=== PATIENT | female | born 1995 | race Caucasian/White ===

== ENCOUNTER 2016-07-28 21:40 | Emergency (ER) | payer BC, OTHER ==
[~2016-07-28] VITALS: Ht 182.9 cm; Wt 92.0 kg
[2016-07-28 21:51] VITALS: TEMP 37.2; Ht 182.9 cm; Wt 92.0 kg
[2016-07-28] MEDS ORDERED: AMOX875T PO (22:12)
[2016-07-28] MEDS ORDERED: PRED10TA PO (22:12)
[2016-07-28] MEDS ORDERED: ACETAMINOPHEN 500 MG TAB PO STA (22:29)
[2016-07-28] MEDS ORDERED: IBUPROFEN 600 MG TAB PO STA (22:29)
--- NOTE | 2016-07-28 22:42 | EMERGENCY ROOM VISIT NOTE ---
History Report prepared by Jaydon: Ronaldo Woods Under the Supervision of: Dr. David Mulligan M.D. First contact with patient: 22:20 Chief Complaint: BITE Stated Complaint: BIT BY DOG LAST NIGHT, FEELING WORSE SINCE SEEN History of Present Illness The patient is a 21 year old female who presents to the Emergency Room with complaints of worsening left wrist pain secondary to dog bite occurring yesterday. 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 The patient was able to shake off the dog. She is unsure if the dog is completely immunized yet or not. Last night, the patient started having pain radiation to her left fingers, left upper arm, and left side of upper back. She took Motrin last night with some relief. She was evaluated at [facility] today, received an antibiotic shot, and was prescribed Augmentin and Prednisone. The patient denies headache, fevers, chills, or any other complaints. Her tetanus shot is up-to-date. Source of History: patient Onset: yesterday Position: wrist (left) Timing: worsening Modifying Factors (Relieving): other (Motrin with some relief) Associated Symptoms: No chills, No fevers, No headache Review of Systems See HPI for pertinent positives & negatives. A total of 10 systems reviewed and were otherwise negative. Past Medical & Surgical Medical Problems: (1) No Known Active Medical Problems Family History Patient reports no known family medical history. Social History Smoking Status: Never Smoker Marital Status: single Occupation Status: student Current/Historical Medications Scheduled Amoxicillin & Pot Clavulanate (Augmentin 875-125 mg), 1 TAB PO BID Prednisone Tab (Prednisone), 10 MG PO DAILY Allergies Coded Allergies: Sulfa Antibiotics (Verified Allergy, Unknown, HAPPENED A CHILD, 07/28/16 ) Physical Exam Vital Signs Date Time Temp Pulse Resp B/P Pulse Ox O2 Delivery O2 Flow Rate FiO2 07/28/16 21:51 37.2 86 18 151/98 97 Room Air Physical Exam GENERAL: Patient is in no acute distress. HEENT: No acute trauma, normocephalic atraumatic, mucous membranes moist, no nasal congestion, no scleral icterus. NECK: No stridor, no adenopathy, no meningismus, trachea is midline. LUNGS: Clear to auscultation bilaterally, no wheeze, no rhonchi, breath sounds equal. HEART: Without murmurs gallops or rubs, regular rate and rhythm. ABDOMEN: Soft, nontender, bowel sounds positive, no hernias, no peritonitis. EXTREMITIES: Abrasions and a puncture wound to the left volar and lateral wrist. No signs of cellulitis. All tendon function appears intact. Strong radial pulse. No ascending infection. NEUROLOGIC: Oriented x 3, no acute motor or sensory deficits, no focal weakness. SKIN: No rash, no jaundice, no diaphoresis. Medical Decision & Procedures ER Provider Diagnostic Interpretation: X-ray results as stated below per interpretation by me and the radiologist: LEFT WRIST 5 VIEWS HISTORY: bite, pain COMPARISON: None. FINDINGS: There is no fracture or dislocation. Mild dorsal soft tissue swelling. No radiopaque foreign bodies. IMPRESSION: No fractures. Electronically signed by: Josh Cabral M.D. 07/28/2016 10:59 PM Dictated Date/Time: 07/28/2016 10:57 PM Medications Administered Medications (Trade) Dose Ordered Sig/Soheila Route Start Time Stop Time Status Last Admin Dose Admin Ibuprofen (Motrin Tab) 600 mg NOW STAT PO 07/28/16 22:29 07/28/16 22:31 DC 07/28/16 22:36 600 MG Acetaminophen (Tylenol Tab) 500 mg NOW STAT PO 07/28/16 22:29 07/28/16 22:31 DC 07/28/16 22:36 500 MG ED Course 2220: The patient was evaluated in room A12B. A complete history and physical exam was performed. 2229: Tylenol Tab 500 mg PO, Motrin Tab 600 mg PO 2315: Reevaluated the patient. Discussed results and discharge instructions: She verbalized understanding and agreement. The patient is ready for discharge. Medical Decision Differential diagnosis includes but is not limited to fracture, retained foreign body, cellulitis, tendon or nerve damage, arterial damage. The patient presents with left wrist pain from a dog bite that occurred yesterday. She was concerned for spreading infection. She is on Augmentin and took a dose just a few hours ago. The patient feels pain radiating from her wrist up to her shoulder. Films of the left wrist were done, there was no acute fracture, no bony malalignment. On exam, the patient did not have cellulitis. There were no neurovascular deficits. Her tendon function appeared intact. The patient was reassured by the exam and x-ray. She was told to continue the Augmentin but to stop the prednisone. Ice and elevation were encouraged. She can return here if worsening or not improving. Of note, the patient was not sure of the dog's rabies status but feels the dog is likely immunized. She will talk to her supervisor edging tomorrow and address this issue. She can return here if rabies vaccinations are required. Impression Primary Impression: Dog bite Additional Impression: Left wrist pain Scribe Attestation The scribe's documentation has been prepared under my direction and personally reviewed by me in its entirety. I confirm that the note above accurately reflects all work, treatment, procedures, and medical decision making performed by me. Departure Information Dispostion Home / Self-Care Referrals No Doctor Assigned Forms HOME CARE DOCUMENTATION FORM, IMPORTANT VISIT INFORMATION Patient Instructions My [facility] Additional Instructions stop the prednisone continue the augmentin ice to the area may help use motrin 600 mg 3x per day for 5 days may use tylenol for pain as needed return for fever or worsening symptoms you need to talk with the client administrator at [facility] to be sure the dog has had its rabies vaccines Problem Qualifiers
--- NOTE | 2016-07-28 23:00 | DIAGNOSTIC IMAGING REPORT ---
LEFT WRIST 5 VIEWS HISTORY: bite, pain COMPARISON: None. FINDINGS: There is no fracture or dislocation. Mild dorsal soft tissue swelling. No radiopaque foreign bodies. IMPRESSION: No fractures. Electronically signed by: Josh Cabral M.D. 07/28/2016 10:59 PM Dictated Date/Time: 07/28/2016 10:57 PM
[2016-07-28 23:31] VITALS: BP 132/81; PULSE 61; O2SAT 96
== END 2016-07-28 23:31 | disposition home or self-care (01) ==
LOC: C.EDB 21:43 → C.EDA 23:31
DX: W54.0XXA Bitten by dog, initial encounter (principal); M25.532 Pain in left wrist

== ENCOUNTER → 2017-03-01 | Outpatient (CLI) | payer BC ==
[~2017-03-01] MED LIST: AMOX875T PO; PRED10TA PO
[2017-03-04 01:47] LABS: CHLAMYDIA TRACH RNA*** NOT DETECTED (NOT DETECTED); GC (NEIS GONORRHOEAE)RNA** NOT DETECTED (NOT DETECTED)
== END | disposition home or self-care (01) ==
LOC: C.LABSPEC 18:26
PROVIDERS: ATTEND Physician Assistant
DX: N39.0 Urinary tract infection, site not specified (principal); N89.8 Other specified noninflammatory disorders of vagina

== ENCOUNTER → 2017-07-09 | Outpatient (CLI) | payer BC | END | disposition home or self-care (01) | LOC: C.LABSPEC 15:46 | PROVIDERS: ATTEND Physician Assistant | DX: Z20.2 Contact with and (suspected) exposure to infections with a predominantly sexual mode of transmission (principal); N89.8 Other specified noninflammatory disorders of vagina; N76.0 Acute vaginitis ==

== ENCOUNTER → 2017-07-09 | Outpatient (CLI) | payer BC ==
[2017-07-09 16:50] LABS: HEP C IGG 13 YRS+OLDER_RFLX NEG (NEG)
== END | disposition home or self-care (01) ==
LOC: C.LAB1850 14:33
PROVIDERS: ATTEND Physician Assistant
DX: Z20.2 Contact with and (suspected) exposure to infections with a predominantly sexual mode of transmission (principal)

== ENCOUNTER 2023-05-13 11:03 | Inpatient (IN) ==
[2023-05-13] MEDS ORDERED: LIDOCAINE 1% LOCAL 20 ML VIAL INFIL PRN (11:34)
[2023-05-13] MEDS ORDERED: OXYTOCIN 30 UNITS/NSS 30 UNITS/500 ML BAG IV PRN ×2 (11:34→12:46)
[2023-05-13] MEDS ORDERED: PENICILLIN GK 6 MU in DEXTROSE 5% 250 ML IV STA (12:20)
[2023-05-13] MEDS: LACTATED RINGER'S 1,000 ML IV PRN ×2 (12:25→19:37)
[2023-05-13 12:28] LABS: Hematocrit (blood only) 35.5 % (37.0-47.0); Hemoglobin 12.6 g/dl (12.0-16.0); Mean Corpuscular Hgb Conc 35.5 g/dL (32.0-36.0); Mean Corpuscular Volume 90.1 fL (80.0-100.0); Mean Platelet Volume 10.5 fL (9.4-12.4); Platelet Count 199 K/uL (130-400); RDW Coefficient of Variation 13.3 % (11.5-14.5); Red Blood Count 3.94 M/uL (4.20-5.40); White Blood Count 12.79 K/ul (4.8-10.8)
--- NOTE | 2023-05-13 12:50 | Obstetrical Progress Note ---
Date of Service May 13, 2023 Assessment & Plan (1) Chronic hypertension affecting : Plan: Induction for CHTN in BPP on 05/11 and 05/12/23 was 6/8 Consultation done with MFM via phone Recommendation is to induce labor Pt doing well today FHR; CAT1 Ctx . minimal Ve; ft/50/-3 Joshua bulb with 30 cc saline paced w/o diffciulty Pitcon augmentation Admission and Anticipated Discharge Date Admission Date: May 13, 2023 Results & Data Vital Signs (Past 12 Hours) Vital Signs Temp Pulse Resp BP 05/13/23 11:51 36.6 C 18 05/13/23 11:22 93 H 128/79
--- NOTE | 2023-05-13 14:10 | Anesthesiology Consultation ---
Date of Service May 13, 2023 Assessment & Plan Chart Review Chart Review: Patient NOT seen in Pre Admission Testing and Acceptable Risk for Labor Epidural Consults Requested none ASA [id number] Proposed Anesthesia Anesthesia Type: Labor Epidural Risk / Benefits Reviewed With: PT / POA / Parent / Guardian, Accepts Plan and Informed Consent Obtained Additional Comments: Discussed patient's scoliosis surgery history with her extensively. Per documentation, patient had T2-L3 fusion. Continued thoracolumbar scoliosis on most recent xray. Safe to place epidural. Discussed increased risk for difficulty with placement, one-sided epidural, accidental dural puncture. Consented patient. Will perform epidural at patient request. History Height/Weight Height: 6 ft Weight: 113.852 kg Allergies Allergy/AdvReac Type Severity Reaction Status Date / Time Sulfa (Sulfonamide Allergy Unknown As child Verified 03/29/23 15:02 Antibiotics) Medications Home Medications Medication Instructions Recorded Confirmed Last Taken aspirin 81 mg tablet 81 mg PO DAILY 03/29/23 05/13/23 05/13/23 08:00 nifedipine 60 mg tablet,extended 60 mg PO DAILY 03/29/23 05/13/23 05/13/23 08:00 release 24 hr vitamin-ferrous sulfate 1 tab PO DAILY 03/29/23 05/13/23 05/12/23 22:00 27 mg iron-folic acid 0.8 mg tablet sertraline 50 mg tablet 50 mg PO DAILY 03/29/23 05/13/23 05/13/23 08:00 Active Medications Generic Name Dose Route Start Last Admin Trade Name Freq PRN Reason Stop Dose Admin Lactated Ringer's 1,000 mls @ 125 mls/hr 05/13/23 11:34 05/13/23 12:25 Lr IV 05/15/23 11:33 125 mls/hr .Q8H PRN Administration L&D Protocol Protocol Oxytocin 30 units in 500 mls @ 4 mls/hr 05/13/23 12:46 05/13/23 13:36 Pitocin 30 Units/Nss IV 05/15/23 12:45 0.24 units/hr .Q24H PRN 4 mls/hr Labor Induction/Augmentation Titration Protocol 0.24 UNITS/HR Past Medical History Medical History OCD (obsessive compulsive disorder) TOLU (generalized anxiety disorder) Per [facility] records HTN (hypertension) Unclear if gestational or pre-existing HTN Possibly white coat syndrome related Scoliosis s/p T2-L3 posterior spinal fusion Xray 04/2013: There is thoracic dextroscoliosis and lumbar levoscoliosis, visually unchanged from prior examinations. Posterior spinal rods are present, without hardware abnormality. Exercise / Class Metabolic Activity II 4-5 Yardwork/Stairs/Walk up hill Past Family History Family History Denies family history of Ovarian cancer Breast cancer Colorectal cancer Past Surgical History Surgical History S/P wisdom tooth extraction Fusion of spine T2-L3 posterior spinal fusion (2011) Past Anesthesia History No Hx of Anesthesia Complications and No Family Hx of Anesthesia Complications Social History Smoking Status: Never smoker Do You Dip or Chew Tobacco: No Hx Alcohol Use: No Hx Substance Use: No Review of Systems ROS Unobtainable: All systems reviewed & are unremarkable except as noted in HPI & below Physical Exam Vital Signs Last Vital Signs Temp 36.6 C 05/13/23 11:51 Pulse 83 05/13/23 13:06 Resp 18 05/13/23 11:51 BP 119/70 05/13/23 13:06 Constitutional no acute distress ENMT Mouth: no TMJ abnormality Thyromental Distance: > or= 3.5 Finger Breadths Mallampati Class: III Neck normal visual inspection and trachea midline; neck extension not limited Respiratory normal respiratory effort Auscultation: lungs clear to auscultation bilaterally Cardiovascular Rate/Rhythm: regular rate and regular rhythm Heart Sounds: no murmur Musculoskeletal Spine: normal cervical ROM Extremities: full ROM of extremities Neurologic moves all extremities Psychiatric Orientation: alert and oriented x 3 Testing Laboratory Results 05/13/23 12:07
[2023-05-13] MEDS ORDERED: PENICILLIN GK 3 MU in DEXTROSE 5% 100 ML IV PRN (15:20)
[2023-05-13] MEDS ORDERED: fentaNYL citrate PF 100 MCG/2 ML VIAL ONE (20:22)
[2023-05-13] MEDS ORDERED: SODIUM CHLORIDE 0.9% PF INJ 10 ML VIAL ONE (20:23)
[2023-05-13] MEDS ORDERED: ePHEDrine sulfate 50 MG/ML AMP ONE (20:23)
[2023-05-13] MEDS ORDERED: fentANYL 2 MCG/ML BUPIVacaine 0.125%-NSS 100ML BAG ONE (20:23)
[2023-05-13] MEDS ORDERED: BUPIVACAINE 0.25% PF 30 ML VIAL ONE (20:23)
[2023-05-13] MEDS ORDERED: LIDOCAINE 2%/EPINEPHRINE 1:200,000 20 ML PF ONE (20:23)
[2023-05-13] MEDS ORDERED: fentANYL 2 MCG/ML BUPIVacaine 0.125%-NSS 100ML BAG EPI PRN (21:50)
[2023-05-13] MEDS ORDERED: SODIUM CHLORIDE 0.9% PF INJ 10 ML VIAL EPI STA (21:50)
[2023-05-13] MEDS ORDERED: SODIUM CHLORIDE 0.9% PF INJ 10 ML VIAL EPI PRN (21:50)
[2023-05-13] MEDS ORDERED: NALBUPHINE HCL 5 MG in SYRINGE 0 ML IV PRN (21:50)
[2023-05-13] MEDS ORDERED: fentaNYL citrate PF 100 MCG/2 ML VIAL EPI STA (21:50)
[2023-05-13] MEDS ORDERED: LIDOCAINE 2%/EPINEPHRINE 1:200,000 20 ML PF EPI STA (21:50)
[2023-05-13] MEDS ORDERED: LIDOCAINE 2% MPF LOCAL 5 ML VIAL EPI PRN (21:50)
[2023-05-13] MEDS ORDERED: diphenhydrAMINE 50 MG/ML VIAL IV PRN (21:50)
[2023-05-13] MEDS ORDERED: fentaNYL citrate PF 100 MCG/2 ML VIAL EPI PRN (21:50)
[2023-05-13] MEDS ORDERED: NALOXONE HCL 0.4 MG/1 ML VIAL/CARP IV PRN (21:50)
[2023-05-13] MEDS ORDERED: NALOXONE HCL 1 MG in SODIUM CHLORIDE 0.9% 1,000 ML IV PRN (21:50)
[2023-05-13] MEDS ORDERED: BUPIVACAINE 0.25% PF 30 ML VIAL EPI PRN (21:50)
[2023-05-13] MEDS ORDERED: ePHEDrine sulfate 50 MG/ML AMP IV PRN (21:50)
[2023-05-13] MEDS ORDERED: ROPIVACAINE 0.5% PF 5 MG/ML 20 ML VIAL EPI PRN (21:50)
[2023-05-13] MEDS ORDERED: BUPIVACAINE 0.25% PF 30 ML VIAL EPI STA (21:50)
--- OUTSIDE RECORDS SUMMARY | 2023-05-13 22:10 | External Medical Summary | Summary of Care ---
Author Name Unknown Organization [facility] Address [address] [place] [address] Phone [phone] Care Team Providers Care Environmental Property Assessor Name Role Phone Gaby Meyer MD Primary Care Provider Encounter Details Date Type Department Care Team (Late st Contact Info) Description 05/12/2023 Telephone Gynecology/Obstetrics [facility] [address] [id number] Kb Jacobs MD [address] [place] [id number] Allergies Active Allergy Reactions Criticality Noted Date Comments Sulfa Antibiotics Rash 03/06/2021 documented as of this encounter (statuses as of 05/12/2023) Medications Medication Sig Dispensed Refills Start Date End Date Status 27-0.8 MG Oral Tablet Take 1 Tablet by mouth daily at noon. 0 Active Aspirin 81 MG Oral Tablet Delayed Release Take 1 Tablet by mouth in the morning. 0 Active Ondansetron 8 MG Oral Tablet Disintegrating (Zofran)Indications:N ausea/vomiting in Place 1 Tablet on tongue every 8 hours as needed for Nausea. dissolve on tongue. 30 Tablet 1 12/10/2022 Active NIFEdipine ER 90 MG Oral Tablet Extended Release 24 Hour (Adalat CC)Indications:HTN, goal below 130/80 Take 1 Tablet by mouth in the morning. on an empty stomach.. 90 Tablet 1 02/10/2023 Active Additional Information Patient not taking.Reported on 02/22/2023 NIFEdipine ER 60 MG Oral Tablet Extended Release 24 Hour (Adalat CC)Indications:HTN, goal below 140/90 Take 1 Tablet by mouth in the morning. 0 02/20/2023 Active Sertraline HCl 50 MG Oral Tablet (Zoloft)Indications:G AD (generalized anxiety disorder),Obsessive-c ompulsive disorder, unspecified type Take 1 Tablet by mouth in the morning. 30 Tablet 5 02/22/2023 Active metroNIDAZOLE 500 MG Oral Tablet Take 1 Tablet by mouth in the morning and 1 Tablet before bedtime. 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 Currently stable on nifedipine 30 mg daily. Patient states that she monitors her blood pressures at home and that they are typically 120s/80s. Discussed recommendation to start bASA 81 mg daily beginning at 12-13 weeks. BP Readings from Last 5 Encounters: 10/13/22 138/82 09/09/22 142/86 08/20/22 136/82 05/21/22 142/90 05/18/22 130/86 Baseline Preeclampsia Labs Lab Results Component Value Date/Time PLATELET AUTO - [facility] 312 10/13/2022 11:40 AM CREATININE - [facility] 0.6 10/13/2022 11:40 AM AST - [facility] 17 10/13/2022 11:40 AM ALT - [facility] 13 10/13/2022 11:40 AM PROTEIN/ CREATININE RATIO, URINE - [facility] 61 10/13/2022 10:14 AM Last Assessment & Plan: I reviewed the ultrasound. The overall estimated weight is consistent with the 30th percentile for the gestational age and the anatomy that was visualized appears unremarkable. The amniotic fluid volume is normal at 21 cm and the fetus is in the vertex presentation. Anxiety during 10/13/2022 Overview: Zoloft restarted 2nd trimester Last Assessment & Plan: ANXIETY AND DEPRESSION CONSIDERATIONS: Untreated maternal anxiety and depression may be associated with an increased risk of multiple poor obstetrical outcomes including miscarriages, low weight, and delivery. Women with a history of anxiety or depression are at risk for recurrence both during and/or the period. Studies of first-trimester SSRI exposure do not demonstrate consistent data to support an increased risk for structural malformations. Anti-anxiety or depression medications have been associated with transient effects (withdrawal syndrome). RECOMMENDATIONS: Mental illness can and should be treated during when the benefits of treatment outweigh potential risks. Referral to behavioral health services as clinically indicated. Obesity complicating 10/13/2022 Overview: Pre-gravid BMI 32.14 (#237, 6'0") Early 1 hour GCT 128 mg/dL Last Assessment & Plan: I reviewed the ultrasound. The anatomy that was visualized appears unremarkable and the overall estimated weight is consistent with the 72nd percentile for the gestational age. The amniotic fluid volume is subjectively normal. History of spinal surgery 10/13/2022 Overview: Lumbar fusion - anesthesia referral in 3rd trimester S/p anesthesia consult as follows: " Assessment: Making the assumption that Barbara has had not further spinal surgery since these imaging studies were completed; we have opportunity to attempt neuroaxial anesthesia via access at interspaces L3-4, L4-5 and L5-S1. This is with the caveat this report references images that are over 10 years old and does not explicitly describe the anatomy of the lower lumbar region. As with any intervention there is always the potential for bleeding and infection (although very rare), which in Barbara's case has the potential to require surgery to remove the hardware in her spine if it were to get infected. Thank you for reaching out to use for consultation. Charles Chavira DO " Hypertension 10/12/2022 Anxiety about health 09/01/2021 Estimated Date of Delivery Comme nts Yes 05/20/2023 Based on Ultraso und documented as of this encounter (statuses as of 05/12/2023) Resolved Problems Problem Noted Date Diagnosed Date Resolved Date Elevated blood pressure read ing in office without diagnosis of hypertension 09/01/20212022 documented as of this encounter (statuses as of 05/12/2023) Immunizations Name Administration Dates Next Due COVID-19 mRNA, LNP-s, No Pre serve, 2-Dose Series (Moderna) 08/06/2020,07/09/2020 HPV Vaccine, 4-Valent 01/07/2012 RSV Vac., Bivalent, Perfusio n F, Pf,0.5 Ml (Abrysvo) 04/21/2023 Seasonal Influenza Virus Vac cine, Unspecified Formulation 03/22/2020,02/26/2014,04/09/2012 Seasonal Influenza, PF, 6 M & above, IM , (FluLaval or Fluzone) 02/03/2023 TDAP (age 10 and older)([facility]) 03/03/2023, documented as of this encounter Social History Tobacco Use Types Packs/Day Years Used Date Smoking Tobacco: Never Smokeless Tobacco: Never Alcohol Use Standard Drinks/Week Comments Not Currently 0 (1 standard drink = 0.6 oz pur e alcohol) Denies in PHQ-2 Answer Date Recorded PHQ Adult Total Score 0 09/09/2022 Hunger Vital Sign Answer Date Recorded Within the past 12 months, y ou worried that your food would run out before you got the money to buy more. Never true 09/10/19 23 Within the past 12 months, t he food you bought just didn't last and you didn't have money to get more. Never true 09/09/2022 Brook Depression Scale Answer Date Recorded Brook Depression Scale Total 15 03/03/2023 The thought of harming myself has occurred to me . Never 03/03/2023 Estimated Date of Delivery Comme nts Yes 05/20/2023 Based on Ultraso und Sex and Gender Information Value Date Recorded Sex Assigned at Female 03/06/2021 8:55 AM EDT Gender Identity Female 03/06/2021 8:55 AM EDT Sexual Orientation Straight 03/06/2021 8: 55 AM EDT Job Start Date Occupation Industry Not on file Not on file Not on file documented as of this encounter Miscellaneous Notes * Telephone Encounter - Lucina Lazaro RN - 05/12/2023 8:18 AM EST Patient calling in this morning, had NST yesterday in office, then BPP 10/15. Patient sent to L [facility]. Discharged home, but states Dr. Jacobs wanted her to have another NST today in office. Patient added to [facility]'s schedule. Okay to schedule in discretionary time per [facility]. Patient aware to come in at 9:30 documented in this encounter Plan of Treatment Upcoming Encounters Date Type Department Care Team (Late st Contact Info) Description 05/12/2023 10:00 AM EST Office Visit Gynecology/Obstetrics [facility] [address] [id number] Shilpi Quintero CRNP [address] [phone] 06/30/2023 1:40 PM EST Office Visit Family Practice [facility] [address] [address] Gaby Meyer MD [address] [phone] Health Maintenance Due Date Last Done Comments Hepatitis B (1 of 3 - 3-dose series) 1995 GARDASIL-HPV IMMUNIZATION SERIES (2 - 3-dose series) 02/04/2012 01/07/2012 COVID-19 Vaccine (2022- season) 2023 08/06/2020, 07/09/2020 Depression Screening 09/10/2023 09/09/2022 GFR 03/03/2024 03/03/2023, 06/0 10/2022, 03/06/2021 Pap Smear 10/13/2025 10/13/2022, 11/17/2021 DTaP,Tdap,and Td Vaccines (3 - Td or Tdap) 03/03/2033 03/03/2023, 09/01/2021 Gonorrhea / Chlamydia Screen Discontinued 10/13/2022, 11/17/2021 Influenza Vaccine (FLU shot) Completed 02/03/2023, 03/22/2020, 02/26/2014, Additional history exists MENINGOCOCCAL (MENACTRA/MENVEO) Aged Out No longer eligible based on patient's age to complete this topic Pneumococcal Vaccine: Pediatrics (0 to 5 Years) and At-Risk Patients (6 to 64 Years) Aged Out No longer eligible based on patient's age to complete this topic documented as of this encounter Medical Devices Not on filedocumented as of this encounter Care Teams Environmental Property Assessor Relationship Specialty Start Date End Date Gaby Meyer MD [address] [id number] PCP - General Internal Medicine 03/06/21 documented as of this encounter
--- OUTSIDE RECORDS SUMMARY | 2023-05-13 22:10 | External Medical Summary | Summary of Care ---
Author Name Unknown Organization [facility] Address [address] [place] [address] Phone [phone] Care Team Providers Care Plycor Operator Name Role Phone Gaby Meyer MD Primary Care Provider Encounter Details Date Type Department Care Team (Late st Contact Info) Description 05/11/2023 Result Scan Unspecified Department <No scans attached> Allergies Active Allergy Reactions Criticality Noted Date [...] of cervix with LGSIL 10/27 Overview: At [facility] colposcopy PP Rh negative status during 10/14/2022 [...] money to get more. Never true 09/09/2022 Sarles Depression Scale Answer Date Recorded Sarles Depression Scale Total 15 03/03/2023 The thought [...] on file documented as of this encounter Plan of Treatment Upcoming Encounters Date Type Department Care Team (Late st Contact Info) Description 06/30/2023 1:40 PM EST Office Visit Family [facility] [address] [place] [address] Gaby Meyer MD [address] [place] [phone] Health Maintenance Due Date Last Done Comments Hepatitis B (1 of 3 - 3-dose series) 1995 GARDASIL-HPV IMMUNIZATION SERIES (2 - 3-dose series) 02/04/2012 01/07/2012 COVID-19 Vaccine (3 - 2022- season) 2023 08/06/2020, 07/09/2020 Depression Screening 09/10/2023 09/09/2022 GFR 03/03/2024 03/03/2023, 10/2022, 03/06/2021 Pap Smear 10/13/2025 10/13/2022, 11/17/2021 [...] Not on filedocumented as of this encounter Procedures Procedure Name Priority Date/Time Associated Diagnosis Comments RADIOLOGY SCANNED RESULT 05/11/2023 documented in this encounter Results * RADIOLOGY SCANNED RESULT (05/11/2023) 05/11/2023 No Physician Data Unknown DIAGNOSTIC RAD IOLOGY SERVICES documented in this encounter Care Teams Plycor Operator Relationship Specialty Start Date End Date Gaby Meyer MD [address] [id number] PCP - General Internal Medicine 03/06/21 documented as of this encounter
--- OUTSIDE RECORDS SUMMARY | 2023-05-13 22:10 | External Medical Summary | Summary of Care ---
Author Name Unknown Organization [facility] Address [address] [place] [address] Phone [phone] Care Team Providers Care Shipping Technician Name Role Phone Gaby Meyer MD Primary Care Provider Reason for Visit * Reason Comments Return Visit Encounter Details Date Type Department Care Team (Late st Contact Info) Description 05/11/2023 2:30 PM EST Office Visit Gynecology/Obstetri cs [facility] [address] [place] [address] Kalani Perez, [facility] [address] [place] [address] Bill, Non Stress Tests [facility] [address] [place] [address] High-risk , third trimester*; Chronic hypertension in ; Anxiety during ; Rh negative status during in third trimester; GBS (group B Streptococcus carrier), +RV culture, currently ; Class 1 obesity Allergies Active Allergy Reactions Criticality Noted Date Comments Sulfa Antibiotics Rash 03/06/2021 documented as of this encounter (statuses as of 05/11/2023) Medications Medication Sig Dispensed Refills Start Date [...] as of this encounter (statuses as of 05/11/2023) Active Problems Problem Noted Date Diagnosed Date GBS (group B Streptococcus c arrier), +RV culture, currently 04/23/2023 TOLU (generalized anxiety disorder) 11/19/2022 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 Never true 09/09/2022 [place] Depression Scale Answer Date Recorded [place] Depression Scale Total 15 03/03/2023 The thought [...] on file documented as of this encounter Last Filed Vital Signs Vital Sign Reading Time Taken Comments Blood Pressure 120/76 05/11/2023 2:30 PM EST Pulse - - Temperature - - Respiratory Rate - - Oxygen Saturation - - Inhaled Oxygen Concentration - - Weight 113.9 kg (251 lb) 05/11/2023 2:30 PM EST Height 182.9 cm (6') 05/11/2023 2:30 PM EST Body Mass Index 34.04 05/11/2023 2:30 PM EST documented in this encounter Progress Notes * Kalani Perez CNM - 05/11/2023 2:37 PM EST ASSESSMENT assessment with Non-stress Test completed on 05/11/2023 at 38w5d EGA for indication of chronic hypertension. heart baseline: unable to determine baseline due to marked variability and frequent movement. Baseline appears to be approximately 150-155bpm. Variability: Marked Decelerations: based on baseline of 150-155bpm, deceleration noted at 1525 Accelerations: present up to 185bpm Contractions: None NST start time: 1430 NST stop time: 1543 NST strip reviewed, interpreted, and approved by OB provider, Kalani Perez CNM NST strip stored in clinic storage file. NST equivocal. Barbara Adair is a 28 year old female here for her routine OB appointment at 38w5d Her Estimated Date of Delivery: 05/20/23 REVIEW OF SYSTEMS: She affirms movement. Denies vaginal bleeding, LOF, contractions, N/V, headaches, vision changes, and RUQ pain. PHYSICAL EXAM: Filed Vitals: 05/11/23 1430 BP: 120/76 Weight: 113.9 kg (251 lb) Height: 1.829 m (6') +FHT: see NST Fundal height: not assessed ASSESSMENT/PLAN: (O10.919) Chronic hypertension in Plan: -Taking Nifedipine ER 60mg PO daily -IOL scheduled for 05/13/23 at [facility] -Reviewed IOL process (O99.340, F41.9) Anxiety during (O26.893, Z67.91) Rh negative status during in third trimester (O99.820) GBS (group B Streptococcus carrier), +RV culture, currently Plan: -IV ABX in labor (E66.9) Class 1 obesity (O09.93) High-risk , third trimester (primary encounter diagnosis) Plan: US BPP W/O NON-STRESS TEST -NST equivocal; BPP 6/8. Discussed with Dr. Jacobs at 1627. Patient was advised to present to [facility] labor and delivery. Patient agreeable. L+D staff notified at 1641 by Sarah Rodriguez LPN - labor precautions and kick counts reviewed -IOL on 05/13/23 Dr. Jacobs 4:27pm Kalani Perez CNM documented in this encounter Plan of Treatment Upcoming Encounters Date Type Department Care Team (Late st Contact Info) Description 06/30/2023 1:40 PM EST Office Visit Family Practice [facility] [address] [address] Gaby Meyer MD [address] [id number] Health Maintenance Due Date Last Done Comments Hepatitis B (1 of 3 - 3-dose series) 1995 GARDASIL-HPV IMMUNIZATION SERIES (2 - 3-dose series) 02/04/2012 01/07/2012 COVID-19 Vaccine (3 - 2022-24 season) 2023 08/06/2020, 07/09/2020 Depression Screening 09/10/2023 09/09/2022 GFR 03/03/2024 03/03/2023, 06/10/2022, 03/06/2021 Pap Smear 10/13/2025 10/13/2022, 11/17/2021 DTaP,Tdap,and [...] Not on filedocumented as of this encounter Results * US BPP W/O NON-STRESS TEST (05/11/2023 4:25 PM EST) Anatomical Region Laterality Modality Abdomen, Body Ultrasound 05/11/2023 4:31 PM EST Impressions 05/11/2023 4:29 PM EST IMPRESSION Biophysical profile 6/8 secondary to no breathing motion noted during the course of the ultrasound examination. (Radiology critical results reporting pathway was initiated given that a follow- up recommendation was provided and to activate [place] ACT 112 patient communication) Narrative 05/11/2023 4:29 PM EST EXAM US BPP W/O NON-STRESS TEST - 05/11/2023 4:25 pm HISTORY non reactive nst COMPARISON 04/22/2023. TECHNIQUE Real-time transabdominal ultrasonography of the fetus was performed with multiple cine clips taken to assess movement and tone. FINDINGS Current gestational age based on history is 38 weeks 5 days. The heart rate was measured at 160 beats per minute. breathing movement = 0 Gross body movement = 2 tone = 2 Qualitative amniotic fluid volume = 2 The biophysical profile is 6/8. JAN 12.9 which is at the 50th percentile for gestational age. Procedure Note Bill Barber MD - 05/11/2023 EXAM US BPP W/O NON-STRESS TEST - 05/11/2023 4:25 pm HISTORY non reactive nst COMPARISON 04/22/2023. TECHNIQUE Real-time transabdominal ultrasonography of the fetus was performed withmultiple cine clips taken to assess movement and tone. FINDINGS Current gestational age based on history is 38 weeks 5 days. The heart rate was measured at 160 beats per minute. breathing movement = 0 Gross body movement = 2 tone = 2 Qualitative amniotic fluid volume = 2 The biophysical profile is 6/8. JAN 12.9 which is at the 50th percentile for gestational age. IMPRESSION IMPRESSION Biophysical profile 6/8 secondary to no breathing motion noted during thecourse of the ultrasound examination. (Radiology critical results reporting pathway was initiated given that afollow- up recommendation was provided and to activate [place] ACT 112patient communication) Kalani Perez CNM RAD ULTRASOUND documented in this encounter Visit Diagnoses Diagnosis High-risk , third trimester- Primary Chronic hypertension in Benign essential hypertension complicating , childbirth, and the puerperium, unspecified as to episode of care Anxiety during Rh negative status during in third trimester GBS (group B Streptococcus carrier), +RV culture, currently Supervision of other high-risk Class 1 obesity Supervision of high-risk , unspecified trimester documented in this encounter Care Teams Shipping Technician Relationship Specialty Start Date End Date Gaby Meyer MD [address] [place] [address] PCP - General Internal Medicine 03/06/21 documented as of this encounter
--- OUTSIDE RECORDS SUMMARY | 2023-05-13 22:10 | External Medical Summary | Summary of Care ---
Author Name Unknown Organization [facility] Address [address] [facility] [address] Phone [phone] Care Team Providers Care Producer Name Role Phone Gaby Meyer MD Primary Care Provider Reason for Visit * Reason Comments Non Stress Test Encounter Details Date Type Department Care Team (Late st Contact Info) Description 05/12/2023 10:00 AM EST Office Visit [facility]necology[facility]stetri [facility] [address] [place] [id number] Shilpi Quintero CRNP [address] [place] [place] [address] Supervision of high-risk , unspecified trimester*; Chronic hypertension in ; Anxiety during ; Other obesity affecting in third trimester; History of spinal surgery; Rh negative status during in third trimester; GBS (group B Streptococcus carrier), +RV culture, currently Allergies Active Allergy Reactions Criticality Noted Date [...] of cervix with LGSIL 10/27 Overview: At [facility] colposcopy PP Rh negative status during [...] 11:40 AM PROTEIN/ CREATININE RATIO, URINE - HIENER 61 10/13/2022 10:14 AM Last Assessment & [...] money to get more. Never true 09/09/2022 [place] Depression Scale Answer Date Recorded [place] Depression Scale Total 15 03/03/2023 The thought [...] on file documented as of this encounter Progress Notes * Shilpi Quintero CRNP - 05/12/2023 10:00 AM EST Repeat NST only; non-reactive NST in office yesterday with equivocal BPP (10/15) - was seen on L&D yesterday and advised to repeat NST today. Being induced tomorrow for CHTN. Reports good movement. No ctx. Reactive NST. ASSESSMENT assessment with Non-stress Test completed on 05/12/2023 at 38w6d weeks gestation for indicationof chronic hypertension, prior equivocal BPP heart baseline: 140 bpm Variability: Moderate Decelerations: absent Accelerations: present Contractions: None NST start time: 0943 NST stop time: 1005 NST strip reviewed, interpreted, and approved by OB provider, JULIANNE Golden . NST strip stored in clinic storage file documented in this encounter Plan of Treatment Upcoming Encounters Date Type Department Care Team (Late st Contact Info) Description 06/30/2023 1:40 PM EST Office Visit [facility] [address] [address] Gaby Meyer MD [address] [id number] Health Maintenance Due Date Last Done Comments Hepatitis B (1 of 3 - 3-dose series) 1995 GARDASIL-HPV IMMUNIZATION SERIES (2 - 3-dose series) 02/04/2012 01/07/2012 COVID-19 Vaccine ( season) 2023 08/06/2020, 07/09/2020 Depression Screening 09/10/2023 [...] Not on filedocumented as of this encounter Visit Diagnoses Diagnosis Supervision of high-risk , unspecified trimester- Primary Chronic hypertension in Benign essential hypertension complicating , childbirth, and the puerperium, unspecified as to episode of care Anxiety during Other obesity affecting in third trimester History of spinal surgery Other postprocedural status Rh negative status during in third trimester GBS (group B Streptococcus carrier), +RV culture, currently Supervision of other high-risk documented in this encounter Care Teams Producer Relationship Specialty Start Date End Date Gaby Meyer MD [address] [place] [id number] PCP - General Internal Medicine 03/06/21 documented as of this encounter
--- NOTE | 2023-05-13 22:49 | Obstetrical Progress Note ---
Date of Service May 13, 2023 Assessment & Plan (1) Chronic hypertension affecting : Plan: Pt doing well FHR; CAT1 Ctx 1-3 Pit; 16MU VE 5/50/-1 SROM during pelvic exam- clear fluid Admission and Anticipated Discharge Date Admission Date: May 13, 2023 Results & Data Vital Signs (Past 12 Hours) Vital Signs Temp Pulse Resp BP Pulse Ox 05/13/23 22:43 82 98 05/13/23 22:38 82 97 05/13/23 22:36 75 122/79 05/13/23 22:33 77 97 05/13/23 22:31 79 123/75 05/13/23 22:28 74 97 05/13/23 22:26 71 118/74 05/13/23 22:23 74 97 05/13/23 22:21 74 112/66 05/13/23 22:18 74 97 05/13/23 22:17 74 119/66 05/13/23 22:13 73 98 05/13/23 22:11 80 118/73 05/13/23 22:08 68 98 05/13/23 22:07 76 119/71 05/13/23 22:03 86 98 05/13/23 22:02 75 124/79 05/13/23 21:58 79 94 05/13/23 21:57 71 94 05/13/23 21:56 73 124/70 05/13/23 21:54 78 124/69 05/13/23 21:53 82 96 05/13/23 21:52 80 124/77 05/13/23 21:50 75 123/74 05/13/23 21:48 77 131/79 96 05/13/23 21:46 76 131/76 05/13/23 21:44 131/89 05/13/23 21:43 82 98 05/13/23 21:42 83 129/87 05/13/23 21:38 87 100 05/13/23 19:04 66 126/70 05/13/23 19:00 18 05/13/23 19:00 37.3 C 18 05/13/23 18:45 18 05/13/23 18:45 18 05/13/23 17:45 18 05/13/23 17:45 18 05/13/23 17:32 75 114/70 05/13/23 17:15 18 05/13/23 17:15 18 05/13/23 16:33 73 120/61 05/13/23 16:32 36.7 C 69 18 122/67 05/13/23 14:08 88 136/80 05/13/23 13:06 83 119/70 05/13/23 11:51 36.6 C 18 05/13/23 11:22 93 H 128/79
[2023-05-14] MEDS: LACTATED RINGER'S 1,000 ML IV PRN (01:55)
[2023-05-14] MEDS ORDERED: miSOPROStoL 200 MCG TAB PR ONE (03:09)
[2023-05-14] MEDS ORDERED: ACETAMINOPHEN 325 MG TAB PO PRN (03:09)
[2023-05-14] MEDS ORDERED: BENZOCAINE 20% SPRY 85 APPLN/85 GM CAN EXT PRN (03:09)
[2023-05-14] MEDS ORDERED: DIPHTHERIA/TETANUS/PERTUSSIS Vaccine (Tdap, Age 7+yrs) 0.5mL SYR/VL IM ONE (03:09)
[2023-05-14] MEDS ORDERED: OXYTOCIN 30 UNITS/NSS 30 UNITS/500 ML BAG IV PRN (03:09)
[2023-05-14] MEDS ORDERED: METHYLERGONOVINE MALEATE 0.2 MG/ML AMP IM ONE (03:09)
[2023-05-14] MEDS ORDERED: HYDROCORTISONE ACETATE 25 MG SUPP PR PRN (03:09)
--- NOTE | 2023-05-14 03:09 | Delivery Summary ---
Vaginal Delivery Summary Date of Service May 14, 2023 Vaginal Delivery Summary DELIVERY NOTE Patient delivered a live male in left occiput anterior presentation there was tight nuchal cord which was grabbed with2 clamps and cut . was delivered and placed on mother's abdomen. . Cord blood is obtained Cord gasses are obtained Meconium is absent Placenta is spontaneously delivered. Placenta appears grossly normal and has 3 vessel cord Inspection of the perineum showed a second-degree midline laceration. Laceration is repaired in layers with 2-0 Vicryl in layers Rectal exam post repair showed good sphincter tone no sutures palpated in the rectum. Estimated blood loss is 450 cc per Infants weight and scores are in the pediatric record Mother and baby are stable in in the recovery
[2023-05-14 07:24] LABS: Alanine Aminotransferase 7 U/L (7-52); Albumin Globulin Ratio 1.1 (0.9-2); Albumin Level 3.2 gm/dl (3.4-5.0); Alkaline Phosphatase 80 U/L (34-104); Anion Gap 8 (3-11); Aspartate Aminotransferase 17 U/L (13-39); Basophils # (auto) 0.05 K/uL (0.00-0.20); Basophils % (auto) 0.3 %; Bilirubin,Total 0.7 mg/dl (0.2-1.0); Blood Urea Nitrogen 6 mg/dl (6-23); Calcium 8.8 mg/dl (8.6-10.3); Carbon Dioxide 21 mmol/L (21-32); Chloride 105 mmol/L (98-107); Creatinine Clr Calc Pharmacy 295.5 ml/min; Eosinophils # (auto) 0.02 K/uL (0.00-0.50); Eosinophils % (auto) 0.1 %; Est GFR (African American) > 150.0 ml/min; Est GFR (Non-African American) 141.7 ml/min; Globulin 2.8 gm/dl (2.5-4.0); Glucose Fasting 98 mg/dl (70-99); Hematocrit (blood only) 34.2 % (37.0-47.0); Hemoglobin 12.4 g/dl (12.0-16.0); Immature Granulocytes # (auto) 0.23 K/uL (0.01-0.20); Immature Granulocytes % (auto) 1.2 %; Lymphocytes # (auto) 1.17 K/uL (1.20-3.40); Lymphocytes % (auto) 6.1 %; Mean Corpuscular Hemoglobin 32.4 pg (25.0-34.0); Mean Corpuscular Hgb Conc 36.3 g/dL (32.0-36.0); Mean Corpuscular Volume 89.3 fL (80.0-100.0); Mean Platelet Volume 10.7 fL (9.4-12.4); Monocytes # (auto) 1.41 K/uL (0.11-0.59); Monocytes % (auto) 7.3 %; Neutrophils # (auto) 16.38 K/uL (1.40-6.50); Platelet Count 205 K/uL (130-400); RDW Coefficient of Variation 13.2 % (11.5-14.5); RDW Standard Deviation 43.1 fL (36.4-46.3); Red Blood Count 3.83 M/uL (4.20-5.40); Sodium 134 mmol/L (136-145); White Blood Count 19.26 K/ul (4.8-10.8)
[2023-05-14] MEDS: PRENATAL VITAMIN 1 TAB PO SCH (08:39)
[2023-05-14] MEDS: DOCUSATE SODIUM 100 MG CAP PO SCH ×2 (08:39→19:57)
[2023-05-14] MEDS: NIFEdipine EXTENDED REL 30 MG TABCR PO SCH (09:12)
[2023-05-14] MEDS: SERTRALINE HCL 50 MG TABLET PO SCH (09:12)
--- NOTE | 2023-05-14 09:45 | Anesthesia Procedure Note ---
Date of Service May 14, 2023 Anesthesia Post Epidural Note Vital Signs Vital Signs: Temp Pulse Resp BP Pulse Ox O2 Del Method 36.9 C 73 16 129/78 96 Room Air 05/14/23 07:50 05/14/23 07:50 05/14/23 07:50 05/14/23 07:50 05/14/23 07:50 05/14/23 07:50 Pain Intensity Perineal: Pain Intensity: 2 Notes Mental Status: alert / awake / arousable and participated in evaluation Patient Amnestic to Procedure: No Nausea / Vomiting: adequately controlled Pain: adequately controlled Airway Patency, RR, SpO2: stable & adequate BP & HR: stable & adequate Hydration State: stable & adequate Neuraxial Anesthesia: was administered and sensory block resolved Anesthetic Complications: no major complications apparent and Pt Satisfied with anesthetic care Epidural: Removed without complications and With tip intact
[2023-05-14] MEDS: IBUPROFEN 600 MG TAB PO PRN ×2 (12:39→19:57)
[2023-05-15] MEDS: PRENATAL VITAMIN 1 TAB PO SCH (08:21)
[2023-05-15] MEDS: SERTRALINE HCL 50 MG TABLET PO SCH (08:21)
[2023-05-15] MEDS: DOCUSATE SODIUM 100 MG CAP PO SCH (08:22)
[2023-05-15 09:16] LABS: Basophils # (auto) 0.07 K/uL (0.00-0.20); Basophils % (auto) 0.6 %; Eosinophils % (auto) 1.8 %; Hematocrit (blood only) 34.2 % (37.0-47.0); Hemoglobin 11.8 g/dl (12.0-16.0); Immature Granulocytes # (auto) 0.23 K/uL (0.01-0.20); Immature Granulocytes % (auto) 2.1 %; Lymphocytes # (auto) 1.68 K/uL (1.20-3.40); Lymphocytes % (auto) 15.5 %; Mean Corpuscular Hemoglobin 31.9 pg (25.0-34.0); Mean Corpuscular Hgb Conc 34.5 g/dL (32.0-36.0); Mean Corpuscular Volume 92.4 fL (80.0-100.0); Mean Platelet Volume 10.8 fL (9.4-12.4); Monocytes # (auto) 0.91 K/uL (0.11-0.59); Monocytes % (auto) 8.4 %; Neutrophils # (auto) 7.78 K/uL (1.40-6.50); Neutrophils % (auto) 71.6 %; Platelet Count 181 K/uL (130-400); RDW Coefficient of Variation 13.3 % (11.5-14.5); RDW Standard Deviation 45.1 fL (36.4-46.3); White Blood Count 10.87 K/ul (4.8-10.8)
[2023-05-15] MEDS: NIFEdipine EXTENDED REL 30 MG TABCR PO SCH (09:28)
--- NOTE | 2023-05-15 09:48 | Obstetrical Progress Note ---
Date of Service May 15, 2023 Assessment & Plan Admission and Anticipated Discharge Date Admission Date: May 13, 2023 Subjective Patient is seen and examined. She feels well, no complaints. Ambulating without dizziness Voiding without difficulty Tolerating regular diet with out N&V Bleeding is minimal No fever/ chills/ CP/ SOB/ N&V/ Leg pain Breast feeding without problems Vital Signs Temp Pulse Resp BP Pulse Ox O2 Del Method 05/15/23 08:30 36.4 C L 74 16 134/80 98 Room Air 05/15/23 03:05 69 129/76 05/14/23 23:45 36.7 C 72 18 133/72 98 Room Air Lab Results 05/13/23 05/14/23 05/15/23 Range/Units 12:07 06:35 08:20 WBC 12.79 H 19.26 H 10.87 H (4.8-10.8) K/ul RBC 3.94 L 3.83 L 3.70 L (4.20-5.40) M/uL Hgb 12.6 12.4 11.8 L (12.0-16.0) g/dl Hct 35.5 L 34.2 L 34.2 L (37.0-47.0) % MCV 90.1 89.3 92.4 (80.0-100.0) fL MCH 32.0 32.4 31.9 (25.0-34.0) pg MCHC 35.5 36.3 H 34.5 (32.0-36.0) g/dL RDW Std Deviation 44.0 43.1 45.1 (36.4-46.3) fL RDW Coeff of Emigdio 13.3 13.2 13.3 (11.5-14.5) % Plt Count 199 205 181 (130-400) K/uL MPV 10.5 10.7 10.8 (9.4-12.4) fL Immature Gran % (Auto) 1.2 2.1 % Neut % (Auto) 85.0 71.6 % Lymph % (Auto) 6.1 15.5 % [place] % (Auto) 7.3 8.4 % Eos % (Auto) 0.1 1.8 % Baso % (Auto) 0.3 0.6 % Neut # (Auto) 16.38 H 7.78 H (1.40-6.50) K/uL Lymph # (Auto) 1.17 L 1.68 (1.20-3.40) K/uL [place] # (Auto) 1.41 H 0.91 H (0.11-0.59) K/uL Eos # (Auto) 0.02 0.20 (0.00-0.50) K/uL Baso # (Auto) 0.05 0.07 (0.00-0.20) K/uL Immature Gran # (Auto) 0.23 H 0.23 H (0.01-0.20) K/uL Sodium 134 L (136-145) mmol/L Potassium 4.0 (3.5-5.1) mmol/L Chloride 105 (98-107) mmol/L Carbon Dioxide 21 (21-32) mmol/L Anion Gap 8 (3-11) BUN 6 (6-23) mg/dl Creatinine 0.40 L (0.6-1.2) mg/dl Est Cr Clr Drug Dosing 295.5 ml/min Est GFR ( Amer) > 150.0 ml/min Est GFR (Non-Af Amer) 141.7 ml/min Fasting Glucose 98 (70-99) mg/dl Calcium 8.8 (8.6-10.3) mg/dl Total Bilirubin 0.7 (0.2-1.0) mg/dl AST 17 (13-39) U/L ALT 7 (7-52) U/L Alkaline Phosphatase 80 (34-104) U/L Total Protein 6.0 (6.0-8.3) gm/dl Albumin 3.2 L (3.4-5.0) gm/dl Globulin 2.8 (2.5-4.0) gm/dl Albumin/Globulin Ratio 1.1 (0.9-2) PE: General: Alert, orientedx3, NAD Abd: soft, NT, fundus firm, below Umbilicus Perineum intact, Lochia rubra minimal Ext; NT, no edema AP: 28 yo s/p , ppd# 1, CHTH, on Nifedipine XL VSS Afebrile doing well Continue routine care All questions were answered D/C home tomorrow Results & Data Vital Signs (Past 12 Hours) Vital Signs Temp Pulse Resp BP Pulse Ox O2 Del Method 05/15/23 08:30 36.4 C L 74 16 134/80 98 Room Air 05/15/23 03:05 69 129/76 05/14/23 23:45 36.7 C 72 18 133/72 98 Room Air
--- NOTE | 2023-05-15 10:10 | Obstetrical Progress Note ---
Date of Service May 15, 2023 Assessment & Plan Admission and Anticipated Discharge Date Admission Date: May 13, 2023 Subjective Patient has decided to go home today. D/c instructions will be given. Results & Data Vital Signs (Past 12 Hours) Vital Signs Temp Pulse Resp BP Pulse Ox O2 Del Method 05/15/23 09:51 36.4 C L 74 16 134/80 98 05/15/23 08:30 36.4 C L 74 16 134/80 98 Room Air 05/15/23 03:05 69 129/76 05/14/23 23:45 36.7 C 72 18 133/72 98 Room Air
[2023-05-15] MEDS ORDERED: bisacodyL 5 MG TABEC PO SCH (20:00)
[2023-05-16] MEDS ORDERED: bisacodyL 10 MG SUPP PR PRN (03:09)
--- NOTE | 2023-05-16 05:11 | Coding Query ---
CODING QUERY To promote full compliance with coding requirements relating to patient care, provider participation is requested in all cases of manager of care uncertainty. Please assist us with the question(s) below: Coding Question(s): Please specify below, the number of weeks of gestation of the upon admission, if known: ( X) Specified number of weeks of gestation of on admission. Please Specify the number of weeks of gestation: 39.1 weeks ( ) Number of weeks of gestation of on admission is Unknown Physician's Response(s): Thank you Lesley Saul Principal Diagnosis: "that condition established after study, to be chiefly responsible for occasioning the admission of the patient to the hospital for care." Co-Existing Principal Diagnosis: "when two or more diagnoses equally meet the criteria for principal diagnosis as determined by the circumstances of admission, diagnostic work up, and/or therapy provided, and the Alphabetic Index, Tabular List, or another coding guideline does not provide sequencing direction, any one of the diagnoses may be sequenced first." "When the physician has documented what appears to be a current diagnosis in the body of the record, but has not included the diagnosis in the final diagnostic statement, the physician should be asked whether the diagnosis should be added." (Source Coding Clinic 2 QTR90. p3-4) ZULEYMA
== END 2023-05-15 11:35 | disposition home or self-care (01) | DRG 807 ==
LOC: 4S1 11:03 → 4E2 05-14 06:04